=== PATIENT | male | born 1945 | race Caucasian/White ===

== ENCOUNTER → 2017-10-29 | Outpatient (CLI) | payer MEDICARE ==
[2014-04-18 12:28] VITALS: BMI 26.0
[~2017-10-29] MED LIST: ACET-2043 PO; Acetaminophen PO; Aspirin PO; HYDR-318 PO; LEVO25TA57 PO; LIOT25TA19 PO; LIOTHYRONINE SODIUM PO; LISI-374 PO; Levothyroxine Sodium PO; Lisinopril PO; Tamsulosin Hcl PO
--- NOTE | 2017-10-29 13:36 | RADIOLOGY IMAGING REPORT ---
[place] [facility] [place] NAME: Fredy Avalos : 1945 MR: [id number] V: [id number] EXAM DATE: ORDERING PHYSICIAN: LOI HERNÁNDEZ TECHNOLOGIST: Location: Patient: Fredy Avalos : 1945 Visit/Account:[id number] Date of Sevice: 10/29/2017 THYROID HISTORY: Thyroid cysts,'s daily Synthroid COMPARISON: June 10, 2013 FINDINGS: SIZE: Normal. Right lobe: 4 x 0.7 x 1 cm Left lobe: 3.4 x 1 x 0.8 cm Isthmus: 2 mm PARENCHYMA: Diffusely heterogeneous bilaterally NODULES: Right lobe: * The previous hypoechoic nodule in the inferior aspect the right lobe is not well demonstrated on t he current examination. Left lobe: * There is a well's circumscribed ovoid hypoechoic nodule in the anterior superior pole the left lob e measuring 5.5 mm Isthmus: * None discrete. VASCULARITY: Within normal limits. ADDITIONAL FINDINGS: None. IMPRESSION: Previously noted hypoechoic nodule in the inferior right lobe was not well demonstrated on the curren t examination There is a well-circumscribed hypoechoic nodule anterior superior pole the left lobe measuring 5.5 mm in diameter REFERENCE: 2015 [place] Thyroid [employer] Management Guidelines for Adult Patients with Thyroid Nodules and D ifferentiated Thyroid Cancer: The [place] Thyroid [employer] Guidelines Task Force on Thyroid Nodul es and Differentiated Thyroid Cancer. SONOGRAPHIC PATTERNS: * Benign: Purely cystic nodules (no solid component); estimated risk of malignancy <1 percent; no bi opsy recommended. * Very Low Suspicion: Spongiform or partially cystic nodules without any of the sonographic features described in low, intermediate, or high suspicion patterns; estimated risk of malignancy <3 percent; consider FNA at > 2 cm (Observation without FNA is also a reasonable option). * Low Suspicion: Isoechoic or hyperechoic solid nodule, or partially cystic nodule with eccentric so lid areas, without microcalcification, irregular margin or ETE (extra-thyroidal extension), or taller than wide shape; estimated risk of malignancy 5-10 percent; recommend FNA at >1.5 cm. * Intermediate Suspicion: Hypoechoic solid nodule with smooth margins without microcalcifications, E TE (extra-thyroidal extension), or taller than wide shape; estimated risk of malignancy 10-20 percent ; recommend FNA at > 1 cm. * High Suspicion: Solid hypoechoic nodule or solid hypoechoic component of a partially cystic nodule with one or more of the following features: irregular margins (infiltrative, microlobulated), microc alcifications, taller than wide shape, rim calcifications with small extrusive soft tissue component, evidence of ETE (extra-thyroidal extension); estimated risk of malignancy >70-90 percent; recommend FNA at > 1 cm. NOTES: * Although a sonographically suspicious subcentimeter thyroid nodule without evidence of extrathyroi tata extension or sonographically suspicious lymph nodes may be observed with close sonographic follow -up rather than pursuing immediate FNA, patient age and preference may modify decision-making. A > 50% interval increase in nodule volume and/or development of new suspicious sonographic features are felt to be a valid reasons for potential re-aspiration of a nodule previously shown to have benig n FNA cytology. Report Dictated By: Ania James MD at 10/29/2017 1:29 PM Report E-Signed By: Ania James MD at 10/29/2017 1:32 PM WSN:[id number]
== END ==
LOC: US 01:09
PROVIDERS: ATTEND Family Medicine
DX: E04.9 Nontoxic goiter, unspecified (principal)
CPT/HCPCS: 76536

== ENCOUNTER 2017-11-27 10:20 | Emergency (ER) | payer MEDICARE ==
[2014-04-18 12:28] VITALS: Wt 72.6 kg
--- NOTE | 2017-11-27 10:25 | ER Report ---
History and Physical Time Seen By MD: 10:24 HPI/ROS CHIEF COMPLAINT: Sent from Dr. Verma's office HISTORY OF PRESENT ILLNESS: Patient had syncopal episode while visiting Dr. Thomas today. Did speak with her briefly with regard to this patient. She feels that the patient is not actually having any type of seizure disorder but rather thinks that this is hyperventilation syndrome perhaps secondary to PTSD. Patient is currently awake alert oriented thought process is logical and goal- directed. He denies any head injury. Denies any chest pain or shortness of breath. He does report feeling lightheaded and faint and then having a period of amnesia. He remembers waking up in Dr. Verma's office and he was subsequently transported to the emergency department for further evaluation. He currently offers no complaints at this time. REVIEW OF SYSTEMS: Constitutional: No fever, no chills. Eyes: No discharge. ENT: No sore throat. Cardiovascular: No chest pain, no palpitations. Respiratory: No cough, no shortness of breath. Gastrointestinal: No abdominal pain, no vomiting. Genitourinary: No hematuria. Musculoskeletal: No back pain. Skin: No rashes. Neurological: No headache. Syncopal episode Allergies: Coded Allergies: No Known Drug Allergies (Unverified , 04/05/14) Home Meds Active Scripts [Tamsulosin Hcl] 0.4 MG CAP No Conflict Check, 0.4 MG PO QHS, CAP Prov:CANELO CARDONA MD 05/06/14 [Lisinopril] 10 MG TAB No Conflict Check, 10 MG PO QDAY, TAB Prov:CANELO CARDONA MD 05/06/14 [Liothyronine Sodium] 25 MCG TAB No Conflict Check, 12.5 MCG PO TID, TAB Prov:CANELO CARDONA MD 05/06/14 [Levothyroxine Sodium] 0.025 MG TAB No Conflict Check, 0.025 MG PO TID, TAB Prov:CANELO CARDONA MD 05/06/14 [Aspirin] 325 MG TABEC No Conflict Check, 325 MG PO QDAY, #7 TAB Prov:CANELO CARDONA MD 05/06/14 [Acetaminophen] 325 MG TAB No Conflict Check, 650 MG PO Q4H Y for PAIN, TAB Prov:CANELO CARDONA MD 05/06/14 Reported Medications Lamotrigine (LAMOTRIGINE) 200 Mg Tab.er.24, 200 MG PO QDAY 11/27/17 Hydrocodone/Acetaminophen (Lortab 7.5-325 mg Tablet) 1 Each Tablet, 1-2 TAB PO Q4H Y for PAIN, #50 05/06/14 Lisinopril (LISINOPRIL) 40 Mg Tablet, 40 MG PO QDAY 04/05/14 Liothyronine Sodium (CYTOMEL) 25 Mcg Tablet, 25 MCG PO BID 04/05/14 Levothyroxine Sodium (SYNTHROID) 25 Mcg Tablet, 25 MCG PO 5XD 04/05/14 Acetaminophen (ACETAMINOPHEN) 500 Mg Tablet, 500 MG PO Q4-6H Y for PAIN, TAB 04/05/14 Past Medical/Surgical History Past medical history for hypothyroidism, hypertension history of right total hip replacement. Hx Smoking: Yes Smoking Status: Former Smoker Exposure to Second Hand Smoke?: Yes Hx Alcohol Use: No Constitutional Vital Sign - Last 24 Hours 11/27/17 11/27/17 11/27/17 11/27/17 10:25 10:29 10:50 11:00 Temp 97.4 Pulse 54 51 Resp 20 12 B/P (MAP) 133/79 (97) 133/79 136/70 (92) Pulse Ox 100 100 O2 Delivery Room Air 11/27/17 11/27/17 11/27/17 11/27/17 11:20 11:30 11:50 12:02 Pulse 52 51 Resp 26 28 B/P (MAP) 128/78 (95) 131/97 (108) Pulse Ox 100 100 Intake and Output 11/27/17 11/27/17 11/28/17 15:00 23:00 07:00 Intake Total 500 ml Balance 500 ml Physical Exam General Appearance: The patient is alert, has no immediate need for airway protection and no signs of toxicity. Eyes: Pupils equal and round no pallor or injection. Extraocular muscles are intact and symmetrical. Sclera are anicteric ENT, Mouth: Mucous membranes are moist. Respiratory: There are no retractions, lungs are clear to auscultation. Cardiovascular: Regular rate and rhythm. [ ] Gastrointestinal: Abdomen is soft and non tender, no masses, bowel sounds normal. Neurological: GCS is 15; normal gait Skin: Warm and dry, no rashes. Musculoskeletal: Neck is supple non tender. Extremities are nontender, nonswollen and have full range of motion. Medical Decision Making Data Points Result Diagram: 11/27/17 1035 11/27/17 1035 Laboratory Hematology Test 11/27/17 10:35 11/27/17 10:55 11/27/17 12:00 Red Blood Count 4.65 M/uL (4.00-5.60) Mean Corpuscular Volume 92.0 fL (80.0-96.0) Mean Corpuscular Hemoglobin 31.8 pg (26.0-33.0) Mean Corpuscular Hemoglobin Concent 34.6 g/dL (32.0-36.0) Red Cell Distribution Width 16.8 % (11.5-14.5) Mean Platelet Volume 9.2 fL (7.2-11.1) Neutrophils (%) (Auto) 54.7 % (39.4-72.5) Lymphocytes (%) (Auto) 34.9 % (17.6-49.6) Monocytes (%) (Auto) 6.1 % (4.1-12.4) Eosinophils (%) (Auto) 3.6 % (0.4-6.7) Basophils (%) (Auto) 0.7 % (0.3-1.4) Nucleated RBC Relative Count (auto) 0.1 /100WBC Neutrophils # (Auto) 3.7 K/uL (2.0-7.4) Lymphocytes # (Auto) 2.4 K/uL (1.3-3.6) Monocytes # (Auto) 0.4 K/uL (0.3-1.0) Eosinophils # (Auto) 0.2 K/uL (0.0-0.5) Basophils # (Auto) 0.0 K/uL (0.0-0.1) Nucleated RBC Absolute Count (auto) 0.00 K/uL Peripheral Blood Smear No Y/N Sodium Level 139 mmol/L (137-145) Potassium Level 4.4 mmol/L (3.5-5.0) Chloride Level 105 mmol/L (98-107) Carbon Dioxide Level 23 mmol/L (22-30) Blood Urea Nitrogen 38 mg/dl (9-21) Creatinine 1.60 mg/dl (0.66-1.25) Glomerular Filtration Rate Calc 42.5 Whole Blood Glucose 92 mg/DL (75-110) Random Glucose 90 mg/dl (75-110) Calcium Level 9.9 mg/dl (8.4-10.2) Magnesium Level 2.5 mg/dl (1.7-2.2) Total Bilirubin 0.5 mg/dl (0.2-1.3) Aspartate Amino Transf (AST/SGOT) 72 U/L (0-35) Alanine Aminotransferase (ALT/SGPT) 77 U/L (0-56) Alkaline Phosphatase 69 U/L (0-126) Ammonia < 9 UMOL/L (9-33) Troponin I < 0.012 ng/ml Total Protein 7.5 g/dl (6.3-8.2) Albumin 4.2 g/dl (3.5-5.0) Thyroid Stimulating Hormone (TSH) 17.50 uIU/ml (0.46-4.68) Serum Alcohol < 10 mg/dl Blood Gas Puncture Site Left brachial Blood Gas Patient Temperature 97.4 DEGREES Arterial Blood pH 7.56 (7.35-7.45) Arterial Blood Partial Pressure CO2 < 25 mmHg (32-37) Arterial Blood Partial Pressure O2 84 mmHg (60-80) Arterial Blood HCO3 17 mmol/L (20-26) Arterial Blood Oxygen Saturation 98 % (92-100) Arterial Blood Base Excess -6.0 mmol/L Conor Test Nt avail Oxygen Liters/Minute Room air Urine Color Yellow Urine Clarity Clear Urine pH 7.0 pH (4.8-9.5) Urine Specific Cutler 1.009 Urine Protein Negative mg/dL (NEGATIVE) Urine Glucose (UA) Negative mg/dL (NEGATIVE) Urine Ketones Trace mg/dL (NEGATIVE) Urine Blood Negative (NEGATIVE) Urine Nitrite Negative (NEGATIVE) Urine Bilirubin Negative (NEGATIVE) Urine Urobilinogen Negative mg/dL (0.2-1.9) Urine Leukocyte Esterase Moderate (NEGATIVE) Urine RBC 1 /HPF (0-2/HPF) Urine WBC 40 /HPF (0-5/HPF) Urine Squamous Epithelial Cells None /LPF (</=FEW) Urine Bacteria Few /HPF (NONE-FEW) Urine Mucus None /HPF (NONE-FEW) Urine Opiates Screen Negative Urine Barbiturates Screen Negative Ur Tricyclic Antidepressants Screen Negative Urine Phencyclidine Screen Negative Urine Amphetamines Screen Negative Urine Benzodiazepines Screen Negative Urine Cocaine Screen Negative Urine Cannabinoids Screen Negative Chemistry Test 11/27/17 10:35 11/27/17 10:55 11/27/17 12:00 White Blood Count 6.7 k/uL (4.5-11.0) Red Blood Count 4.65 M/uL (4.00-5.60) Hemoglobin 14.8 g/dL (14.0-18.0) Hematocrit 42.7 % (42.0-52.0) Mean Corpuscular Volume 92.0 fL (80.0-96.0) Mean Corpuscular Hemoglobin 31.8 pg (26.0-33.0) Mean Corpuscular Hemoglobin Concent 34.6 g/dL (32.0-36.0) Red Cell Distribution Width 16.8 % (11.5-14.5) Platelet Count 171 K/uL (150-450) Mean Platelet Volume 9.2 fL (7.2-11.1) Neutrophils (%) (Auto) 54.7 % (39.4-72.5) Lymphocytes (%) (Auto) 34.9 % (17.6-49.6) Monocytes (%) (Auto) 6.1 % (4.1-12.4) Eosinophils (%) (Auto) 3.6 % (0.4-6.7) Basophils (%) (Auto) 0.7 % (0.3-1.4) Nucleated RBC Relative Count (auto) 0.1 /100WBC Neutrophils # (Auto) 3.7 K/uL (2.0-7.4) Lymphocytes # (Auto) 2.4 K/uL (1.3-3.6) Monocytes # (Auto) 0.4 K/uL (0.3-1.0) Eosinophils # (Auto) 0.2 K/uL (0.0-0.5) Basophils # (Auto) 0.0 K/uL (0.0-0.1) Nucleated RBC Absolute Count (auto) 0.00 K/uL Peripheral Blood Smear No Y/N Glomerular Filtration Rate Calc 42.5 Whole Blood Glucose 92 mg/DL (75-110) Calcium Level 9.9 mg/dl (8.4-10.2) Magnesium Level 2.5 mg/dl (1.7-2.2) Total Bilirubin 0.5 mg/dl (0.2-1.3) Aspartate Amino Transf (AST/SGOT) 72 U/L (0-35) Alanine Aminotransferase (ALT/SGPT) 77 U/L (0-56) Alkaline Phosphatase 69 U/L (0-126) Ammonia < 9 UMOL/L (9-33) Troponin I < 0.012 ng/ml Total Protein 7.5 g/dl (6.3-8.2) Albumin 4.2 g/dl (3.5-5.0) Thyroid Stimulating Hormone (TSH) 17.50 uIU/ml (0.46-4.68) Serum Alcohol < 10 mg/dl Blood Gas Puncture Site Left brachial Blood Gas Patient Temperature 97.4 DEGREES Arterial Blood pH 7.56 (7.35-7.45) Arterial Blood Partial Pressure CO2 < 25 mmHg (32-37) Arterial Blood Partial Pressure O2 84 mmHg (60-80) Arterial Blood HCO3 17 mmol/L (20-26) Arterial Blood Oxygen Saturation 98 % (92-100) Arterial Blood Base Excess -6.0 mmol/L Conor Test Nt avail Oxygen Liters/Minute Room air Urine Color Yellow Urine Clarity Clear Urine pH 7.0 pH (4.8-9.5) Urine Specific Cutler 1.009 Urine Protein Negative mg/dL (NEGATIVE) Urine Glucose (UA) Negative mg/dL (NEGATIVE) Urine Ketones Trace mg/dL (NEGATIVE) Urine Blood Negative (NEGATIVE) Urine Nitrite Negative (NEGATIVE) Urine Bilirubin Negative (NEGATIVE) Urine Urobilinogen Negative mg/dL (0.2-1.9) Urine Leukocyte Esterase Moderate (NEGATIVE) Urine RBC 1 /HPF (0-2/HPF) Urine WBC 40 /HPF (0-5/HPF) Urine Squamous Epithelial Cells None /LPF (</=FEW) Urine Bacteria Few /HPF (NONE-FEW) Urine Mucus None /HPF (NONE-FEW) Urine Opiates Screen Negative Urine Barbiturates Screen Negative Ur Tricyclic Antidepressants Screen Negative Urine Phencyclidine Screen Negative Urine Amphetamines Screen Negative Urine Benzodiazepines Screen Negative Urine Cocaine Screen Negative Urine Cannabinoids Screen Negative Toxicology Test 11/27/17 10:35 11/27/17 12:00 Serum Alcohol < 10 mg/dl Urine Opiates Screen Negative Urine Barbiturates Screen Negative Ur Tricyclic Antidepressants Screen Negative Urine Phencyclidine Screen Negative Urine Amphetamines Screen Negative Urine Benzodiazepines Screen Negative Urine Cocaine Screen Negative Urine Cannabinoids Screen Negative Urinalysis Test 11/27/17 12:00 Urine Color Yellow Urine Clarity Clear Urine pH 7.0 pH (4.8-9.5) Urine Specific Cutler 1.009 Urine Protein Negative mg/dL (NEGATIVE) Urine Glucose (UA) Negative mg/dL (NEGATIVE) Urine Ketones Trace mg/dL (NEGATIVE) Urine Blood Negative (NEGATIVE) Urine Nitrite Negative (NEGATIVE) Urine Bilirubin Negative (NEGATIVE) Urine Urobilinogen Negative mg/dL (0.2-1.9) Urine Leukocyte Esterase Moderate (NEGATIVE) Urine RBC 1 /HPF (0-2/HPF) Urine WBC 40 /HPF (0-5/HPF) Urine Squamous Epithelial Cells None /LPF (</=FEW) Urine Bacteria Few /HPF (NONE-FEW) Urine Mucus None /HPF (NONE-FEW) EKG/Imaging EKG Interpretation EKG shows sinus bradycardia with occasional PVCs. Monitor Interpretation: Normal Sinus Rhythm Imaging PATIENT NAME: Fredy Avalos : 1945 MR: [id number] V: [id number] EXAM DATE: ORDERING PHYSICIAN: JAQUI GERONIMO TECHNOLOGIST: Location: [facility] Patient: Fredy Avalos : 1945 Visit/Account:[id number] Date of Sevice: 11/27/2017 EXAMINATION: CT Head without intravenous contrast HISTORY: Altered mental status. Dizziness. TECHNIQUE: Axial images were obtained from the skull base to the vertex without intravenous contrast. Sagittal and coronal reformatted images are also submitted. One of the following dose optimization techniques was utilized in the performance of this exam: Automated exposure control; adjustment of the mA and/ or kV according to the patient's size; or use of an iterative reconstruction technique. Specific details can be referenced in the facility's radiology CT exam operational policy. COMPARISON: None available. FINDINGS: Brain volume: Normal. Ventricles: Negative. Acute ischemic changes: None. Hemorrhage: None. Masses / edema: None. Pompa-white: Negative. White matter: Negative. Vessels: Negative. Extra-axial: Negative. Calvarium / skull base: Negative. Visualized sinuses / orbits: Negative. IMPRESSION: Normal noncontrast head CT. Report Dictated By: Zack Doll MD at 11/27/2017 11:40 AM Report E-Signed By: Zack Doll MD at 11/27/2017 11:43 AM WSN:[id number] ED Course/Re-evaluation Clinical Indication for ER IV: IV Access ED Course 11/27/2017 12:01:23 pm workup unremarkable ABG is consistent with a respiratory alkalosis which would also be consistent with hyperventilation syndrome and syncopal episode. Patient stable at this time will disposition to home however we will contact Dr. Verma to see if she wishes to see the patient prior to leaving the hospital. Decision to Disposition Date: Nov 27, 2017 Decision to Disposition Time: 12:03 Depart Departure Latest Vital Signs Vital Signs Date Time Temp Pulse Resp B/P (MAP) Pulse Ox O2 Delivery O2 Flow Rate FiO2 11/27/17 12:02 131/97 (108) 11/27/17 11:50 51 28 100 11/27/17 10:29 97.4 Room Air Impression: Primary Impression: Hyperventilation syndrome Condition: Improved Disposition: HOME OR SELF-CARE Referrals: LOI HERNÁNDEZ DO (PCP) Patient Instructions: Hyperventilation (GEN), Syncope (ED) JAQUI GERONIMO MD Nov 27, 2017 10:24
[2017-11-27] MEDS ORDERED: NS(*) 0.9% 500 ML BAG 500 ML IV ONE (10:34)
[2017-11-27] MEDS ORDERED: LAMO200T3 PO (10:36)
[2017-11-27 10:45] LABS: PLATELET COUNT, AUTOMATED 171 K/uL (150-450)
--- NOTE | 2017-11-27 10:49 | EKG ---
FACILITY: [facility] - [place] PATIENT NAME: KERI OLIVER : [id number] MR: [id number] V: [id number] EXAM DATE: ORDERING PHYSICIAN: JAQUI GERONIMO TECHNOLOGIST: BENSON Apodaca Reason : Blood Pressure : / mmHG Vent. Rate : 054 BPM Atrial Rate : 054 BPM P-R Int : 242 ms QRS Dur : 102 ms QT Int : 436 ms P-R-T Axes : 049 005 023 degrees QTc Int : 413 ms Sinus bradycardia with 1st degree AV block with frequent premature ventricular complexes Low voltage QRS Possible Inferior infarct , age undetermined Abnormal ECG When compared with ECG of 22-MAR-2014 09:16, premature ventricular complexes are now present Confirmed by DOMINIQUE POOL ([id number]) on 11/27/2017 11:02:54 AM Referred By: GRAZYNA Confirmed By:DOMINIQUE POOL
--- NOTE | 2017-11-27 11:47 | RADIOLOGY IMAGING REPORT ---
FACILITY: [facility] - [place] PATIENT NAME: Fredy Avalos : 1945 MR: [id number] V: [id number] EXAM DATE: ORDERING PHYSICIAN: JAQUI GERONIMO TECHNOLOGIST: Location: [facility] Patient: Fredy Avalos : 1945 Visit/Account:[id number] Date of Sevice: 11/27/2017 EXAMINATION: CT Head without intravenous contrast HISTORY: Altered mental status. Dizziness. TECHNIQUE: Axial images were obtained from the skull base to the vertex without intravenous contrast . Sagittal and coronal reformatted images are also submitted. One of the following dose optimization techniques was utilized in the performance of this exam: Autom ated exposure control; adjustment of the mA and/or kV according to the patient's size; or use of an i terative reconstruction technique. Specific details can be referenced in the facility's radiology C T exam operational policy. COMPARISON: None available. FINDINGS: Brain volume: Normal. Ventricles: Negative. Acute ischemic changes: None. Hemorrhage: None. Masses / edema: None. Pompa-white: Negative. White matter: Negative. Vessels: Negative. Extra-axial: Negative. Calvarium / skull base: Negative. Visualized sinuses / orbits: Negative. IMPRESSION: Normal noncontrast head CT. Report Dictated By: Zack Doll MD at 11/27/2017 11:40 AM Report E-Signed By: Zack Doll MD at 11/27/2017 11:43 AM WSN:[id number]
[2017-11-27 12:02] VITALS: BP 131/97
== END 2017-11-27 12:32 | disposition home or self-care (01) ==
LOC: ER 10:31
DX: F45.8 Other somatoform disorders (principal); R00.1 Bradycardia, unspecified; I44.0 Atrioventricular block, first degree; I49.3 Ventricular premature depolarization; R94.31 Abnormal electrocardiogram [ECG] [EKG]
CPT/HCPCS: 36416; 70450; 80175; 80305; 81001; 82140; 82803; 82948; 83735; 84443; 84484; 85025; 93005; 99284; G0480; J7040; 80320; 82040; 82247; 82310; 82374; 82435; 82565; 82947; 84075; 84132; 84155; 84295; 84450; 84460; 84520

== ENCOUNTER → 2018-12-15 | Outpatient (CLI) | payer MEDICARE ==
[2014-04-18 12:28] VITALS: BMI 26.0
[~2018-12-15] MED LIST changes: +GADOBENATE 529MG/1ML 15ML VIAL IVP ONE; +LAMO200T3 PO
--- NOTE | 2018-12-15 15:20 | RADIOLOGY IMAGING REPORT ---
FACILITY: [facility] - [place] PATIENT NAME: Fredy Avalos : 1945 MR: [id number] V: [id number] EXAM DATE: ORDERING PHYSICIAN: LOI HERNÁNDEZ TECHNOLOGIST: Location: [facility] Patient: Fredy Avalos : 1945 Visit/Account:[id number] Date of Sevice: 12/15/2018 EXAMINATION: MRI Brain without intravenous contrast MRI Brain with intravenous contrast HISTORY: Syncope. Unilateral extremity weakness. COMPARISON: Head CT dated 11/27/2017. Brain MRI dated 04/04/2017 TECHNIQUE: Multi-planar, multi-sequence brain MRI was performed before and after IV gadolinium. CONTRAST: 15 mL of IV MultiHance FINDINGS: Brain volume: Normal. Sagittal midline structures: Negative. Ventricles: Negative. Acute ischemic changes: None. Hemorrhage: Stable 7 mm focus of magnetic susceptibility in the right cerebellar hemisphere with mil d T2/FLAIR hyperintensity (series 6, image 7). Stable 4 mm focus of magnetic susceptibility in the ri ght superior frontal gyrus (series 6, image 19). Masses / edema: None. Enhancement: 4 mm focus of enhancement in the right superior frontal gyrus in the area of magnetic sanabria sceptibility (series 9, image 19). Pompa-white: Negative. White matter: Stable minimal nonspecific chronic white matter disease. Vessels: Negative. Extra-axial: Negative. Calvarium / scalp: Negative. Skull base: Negative. Visualized sinuses / orbits: Negative. Visualized upper neck: Stable small Tornwaldt cyst. IMPRESSION: 1. No acute intracranial abnormality. 2. Stable 7 mm focus of magnetic susceptibility in the right cerebellar hemisphere (series 6, image 7 ). There may be faint enhancement in this region (series 9, image 7; series 10, image 20). 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 3. 4 mm focus of hemosiderin staining in the right superior frontal gyrus with associated enhancement (series 6, image 19; series 9, image 19). The magnetic susceptibility was present on 04/04/2017 and is not significantly changed. 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 4. Stable minimal nonspecific chronic white matter disease. Report Dictated By: Zack Doll MD at 12/15/2018 2:58 PM Report E-Signed By: Zack Doll MD at 12/15/2018 3:13 PM WSN:[email or web address]
== END ==
LOC: MRI 07:35
PROVIDERS: ATTEND Family Medicine
DX: R55 Syncope and collapse (principal); M62.81 Muscle weakness (generalized)
CPT/HCPCS: 70553; A9577

== ENCOUNTER → 2018-12-15 | Outpatient (CLI) | payer MEDICARE ==
[2014-04-18 12:28] VITALS: BMI 26.0
[~2018-12-15] MED LIST changes: -GADOBENATE 529MG/1ML 15ML VIAL IVP ONE
== END ==
LOC: LAB 07:01
PROVIDERS: ATTEND Family Medicine
DX: E03.9 Hypothyroidism, unspecified (principal); I10 Essential (primary) hypertension; E78.5 Hyperlipidemia, unspecified
CPT/HCPCS: 36415; 82040; 82247; 82310; 82374; 82435; 82465; 82565; 82947; 83718; 84075; 84132; 84155; 84295; 84443; 84450; 84460; 84478; 84520

== ENCOUNTER → 2018-12-21 | Outpatient (CLI) | payer MEDICARE ==
[2014-04-18 12:28] VITALS: BMI 26.0
--- NOTE | 2018-12-21 13:55 | RADIOLOGY IMAGING REPORT ---
[place] [facility] [place]IENT NAME: Fredy Avalos : 1945 MR: [id number] V: [id number] EXAM DATE: ORDERING PHYSICIAN: LOI HERNÁNDEZ TECHNOLOGIST: Location: [facility] [place] Patient: Fredy Avalos : 1945 Visit/Account:[id number] Date of Sevice: 12/21/2018 Venous Doppler ultrasound right lower extremity Indication: Right leg swelling. Comparison: None Available Findings: Duplex Doppler and color flow imaging was performed. The common femoral, femoral, and popl iteal veins are all patent and compressible with normal Doppler wave forms. There are normal respons es to augmentation. The posterior tibial and peroneal veins are patent in the calf. The proximal greater saphenous vein i s also normal. Benign-appearing right inguinal lymph nodes are noted IMPRESSION: 1. No evidence of deep venous thrombosis of the right lower extremity. Report Dictated By: Daron Fraga DO at 12/21/2018 1:46 PM Report E-Signed By: Daron Fraga DO at 12/21/2018 1:48 PM WSN:[id number]
== END ==
LOC: US 12:30
PROVIDERS: ATTEND Family Medicine
DX: R22.41 Localized swelling, mass and lump, right lower limb (principal)

== ENCOUNTER → 2018-12-30 | Outpatient (CLI) | payer MEDICARE ==
[2014-04-18 12:28] VITALS: BMI 26.0
--- NOTE | 2019-01-01 14:25 | RT HOLTER TEST ---
FACILITY: [facility] - [place] PATIENT NAME: KERI OLIVER : [id number] MR: [id number] V: [id number] EXAM DATE: ORDERING PHYSICIAN: CHRISTOS MARLEY TECHNOLOGIST: Eyad Gillespie-up date: 2018-12-30 07:51:00 Duration: 47:59:00 Test Indications: BRADYCARDIA Medications: none listed [id number] QRS complexes 534 Ventricular ectopics which represent <1 % of total QRS comp. 162 Supraventricular ectopics which represent <1 % of total QRS comp. * Paced QRS complexes which represent % of total QRS comp. VENTRICULAR ECTOPY 514 Isolated 0 Bigeminal Cycles 10 Couplets 0 Runs 0 Beats in Runs * Beats LONGEST at * BPM at :: -- * Beats FASTEST at * BPM at :: -- SUPRAVENTRICULAR ECTOPY 149 Isolated 5 Couplets 1 Runs 3 Beats in Runs 3 Beats LONGEST at 103 BPM at 07:19:39 2019-01-01 3 Beats FASTEST at 103 BPM at 07:19:39 2019-01-01 HEART RATES 29 MIN at 16:14:16 2018-12-30 60 AVG 104 MAX at 08:32:31 2018-12-30 LONGEST RR 3.256 secs at 16:14:11 2018-12-30 S-T LEVELS Channel 1 -12.800 mm MIN at 07:51:00 2018-12-30 -12.800 mm MAX at 07:51:00 2018-12-30 Channel 2 -12.800 mm MIN at 07:51:00 2018-12-30 -12.800 mm MAX at 07:51:00 2018-12-30 Channel 3 -12.800 mm MIN at 07:51:00 2018-12-30 -12.800 mm MAX at 07:51:00 2018-12-30 The recorded 10 symptom events. One event was associated with at least 2 pauses prior to the symptom s of nausea. The pauses were 3.25 and 2.5 seconds. The other symptom events had normal sinus rhythms. The patient's average heart rate was 60 beats per minute (bpm) with the lowest being 29 bpm. The patient was in a normal sinus rhythm throughout the test with occasional ventricular ectopy and rare supraventricular ectopy. Dr. Marley was notified of the above. Confirmed by KOURTNEY TESFAYE ([id number]) on 01/01/2019 2:21:11 PM Referred By: Overread By: KOURTNEY TESFAYE
== END ==
LOC: RESP 01:11
PROVIDERS: ATTEND Internal Medicine Cardiovascular Disease
DX: R00.1 Bradycardia, unspecified (principal)
CPT/HCPCS: 93225; 93226

== ENCOUNTER → 2019-01-08 | Outpatient (REF) | payer MEDICARE ==
[2014-04-18 12:28] VITALS: BMI 26.0
[2019-01-08 19:52] LABS: PLATELET COUNT, AUTOMATED 192 K/uL (150-450)
== END ==
PROVIDERS: ATTEND Nurse Practitioner Family
DX: R19.5 Other fecal abnormalities (principal)
CPT/HCPCS: 82040; 82247; 82310; 82374; 82435; 82565; 82947; 84075; 84132; 84155; 84295; 84450; 84460; 84520; 85025

== ENCOUNTER → 2019-01-14 | Outpatient (CLI) | payer MEDICARE ==
[2014-04-18 12:28] VITALS: BMI 26.0
== END ==
LOC: LAB 08:20
PROVIDERS: ATTEND Internal Medicine Cardiovascular Disease
DX: G90.01 Carotid sinus syncope (principal); R00.1 Bradycardia, unspecified
CPT/HCPCS: 36415; 82310; 82374; 82435; 82565; 82947; 84132; 84295; 84520; 85027